=== PATIENT | male | born 1975 | race Caucasian/White ===

== ENCOUNTER 2018-09-27 14:56 | Emergency (ER) | payer SELFPAY ==
[2018-09-27] MEDS ORDERED: THIAMINE 100 MG/ML 2 ML VIAL IM STA (15:27)
[2018-09-27] MEDS ORDERED: LORazepam 2 MG/ML INJ IV PRN ×2 (15:27)
[2018-09-27 15:38] LABS: Appearance,Urine Clear (Clear); Bilirubin,Urine Negative (Negative); Blood,Urine Negative (Negative); Color,Urine Orange; Glucose,Urine (UA) 2+ (Negative); Hyaline Casts,Urine 49 /lpf (0-2); Ketones,Urine Trace (Negative); Leukocyte Esterase,Urine Negative (Negative); Mucus,Urine Few /hpf; Nitrite,Urine Negative (Negative); PH, Urine 5.5 (5.0-8.0); Protein,Urine 1+ (Negative); RBC,Urine 1 /hpf (0-5); Specific Gravity,Urine 1.028 (1.001-1.035); WBC,Urine 2 /hpf (0-5)
[2018-09-27 15:40] LABS: Amphetamine Screen,Urine Not Detected (NotDetected); Barbiturate Screen,Urine Not Detected (NotDetected); Benzodiazepines Screen,Urine Not Detected (NotDetected); Cocaine Screen,Urine Not Detected (NotDetected); Methadone Screen, Urine Not Detected (NotDetected); Opiate Screen,Urine Not Detected (NotDetected); Oxycodone Screen, Urine Not Detected (NotDetected); Phencyclidine Screen,Urine Not Detected (NotDetected); Tricyclic Antidepressant,Urine Not Detected (NotDetected); Urn Cannabinoid Scrn Detected (NotDetected)
--- NOTE | 2018-09-27 16:39 | ED ---
Psych HPI - General Source: patient, family Mode of arrival: ambulatory <Danisha Joseph - Last Filed: 09/27/18 16:35> <Singh Reyes - Last Filed: 09/28/18 12:14> - General Chief Complaint: Psychiatric Symptoms Stated Complaint: Mental Health Time Seen by Provider: 09/27/18 15:03 - History of Present Illness Initial Comments: 43yo male brought in by parents for suicidal ideations. Patient states that he has been depressed and has had occasional thoughts of suicide. He states he sent a text to his mother that was concerned for depression he would no elaborate more and she brought patient to the ER for evaluation. Patient states his dad took the gun from his house. On arrival he denies suicidal ideations currently, denies homicidal ideations. He states he does not feel he needs depression medications. States he does have outpatient counseling. Patinet states he was drinking heavily last night and has had increased drinking since divorce which increases his suicidal ideations. Remaining ROS (-) upon arrival patient appears well signs of acute distress. Blood pressure was noted to be elevated. (Danisha Joseph) - Related Data Home Medications Medication Instructions Recorded Confirmed Ascorbic Acid [Vitamin C] 500 mg PO DAILY 09/27/18 09/27/18 Allergies Allergy/AdvReac Type Severity Reaction Status Date / Time No Known Allergies Allergy Verified 09/27/18 17:39 Review of Systems ROS Other: All systems not noted in ROS Statement are negative. <Danisha Joseph - Last Filed: 09/27/18 16:35> ROS Other: All systems not noted in ROS Statement are negative. <Singh Reyes - Last Filed: 09/28/18 12:14> ROS Statement: Those systems with pertinent positive or pertinent negative responses have been documented in the HPI. Past Medical History Additional Past Medical History / Comment(s): cellulitis, gout History of Any Multi-Drug Resistant Organisms: None Reported Past Surgical History: No Surgical Hx Reported Past Psychological History: No Psychological Hx Reported Smoking Status: Light tobacco smoker Past Alcohol Use History: Daily Past Drug Use History: None Reported <Danisha Joseph - Last Filed: 09/27/18 16:35> General Exam Limitations: no limitations <Danisha Joseph - Last Filed: 09/27/18 16:35> - General Exam Comments Initial Comments: General: The patient is awake and alert, in no distress,smells of alcohol Eye: Pupils are equal, round and reactive to light, extra-ocular movements are intact. No nystagmus. There is normal conjunctiva bilaterally. No signs of icterus. Ears, nose, mouth and throat: There are moist mucous membranes and no oral lesions. Neck: The neck is supple, there is no tenderness or JVD. Cardiovascular: There is a regular rate and rhythm. No murmur, rub or gallop is appreciated. Respiratory: Lungs are clear to auscultation, respirations are non-labored, breath sounds are equal. No wheezes, stridor, rales, or rhonchi. Gastrointestinal: Soft, non-distended, non-tender abdomen without masses or organomegaly noted. There is no rebound or guarding present. Musculoskeletal: Normal ROM, no tenderness. Strength 5/5. Sensation intact. Pulses equal bilaterally 2+. Neurological: A&O x 3. CN II-XII intact, There are no obvious motor or sensory deficits. Coordination appears grossly intact. Speech is normal. Skin: Skin is warm and dry and no rashes or lesions are noted. Psychiatric: Cooperative, appropriate mood & affect, normal judgment. (Danisha Joseph) Course Vital Signs 09/27/18 09/27/18 09/28/18 14:58 20:30 00:28 Temperature 98.3 F 98.2 F Pulse Rate 101 H 96 94 Respiratory 18 20 18 Rate Blood Pressure 147/100 132/95 138/93 O2 Sat by Pulse 98 93 L 99 Oximetry 09/28/18 05:29 Temperature 98.0 F Pulse Rate 85 Respiratory 18 Rate Blood Pressure 129/103 O2 Sat by Pulse 95 Oximetry Medical Decision Making - Lab Data Result diagrams: 09/27/18 19:45 09/27/18 19:45 <Singh Reyes - Last Filed: 09/28/18 12:14> - Medical Decision Making Patient was evaluated by EPS and patient was petitioned by family for psychiat saroj treatment. Patient accepted that [facility] (Singh Reyes) - Lab Data Lab Results 09/27/18 09/27/18 09/27/18 Range/Units 15:09 19:45 19:45 WBC 4.7 (3.8-10.6) k/uL RBC 4.58 (4.30-5.90) m/uL Hgb 15.4 (13.0-17.5) gm/dL Hct 45.4 (39.0-53.0) % MCV 98.9 (80.0-100.0) fL MCH 33.7 (25.0-35.0) pg MCHC 34.0 (31.0-37.0) g/dL RDW 11.7 (11.5-15.5) % Plt Count 195 (150-450) k/uL Neutrophils % 69 % Lymphocytes % 19 % Monocytes % 7 % Eosinophils % 3 % Basophils % 1 % Neutrophils # 3.3 (1.3-7.7) k/uL Lymphocytes # 0.9 L (1.0-4.8) k/uL Monocytes # 0.3 (0-1.0) k/uL Eosinophils # 0.1 (0-0.7) k/uL Basophils # 0.1 (0-0.2) k/uL Sodium 140 (137-145) mmol/L Potassium 4.1 (3.5-5.1) mmol/L Chloride 100 (98-107) mmol/L Carbon Dioxide 23 (22-30) mmol/L Anion Gap 17 mmol/L BUN 6 L (9-20) mg/dL Creatinine 0.81 (0.66-1.25) mg/dL Est GFR (CKD-EPI)AfAm >90 (>60 ml/min/1.73 sqM) Est GFR (CKD-EPI)NonAf >90 (>60 ml/min/1.73 sqM) Glucose 226 H (74-99) mg/dL Calcium 9.2 (8.4-10.2) mg/dL Total Bilirubin 1.3 (0.2-1.3) mg/dL AST 380 H (17-59) U/L ALT 165 H (21-72) U/L Alkaline Phosphatase 268 H (38-126) U/L Total Protein 8.8 H (6.3-8.2) g/dL Albumin 4.8 (3.5-5.0) g/dL Urine Color [place] Urine Appearance Clear (Clear) Urine pH 5.5 (5.0-8.0) Ur Specific [place] 1.028 (1.001-1.035) Urine Protein 1+ H (Negative) Urine Glucose (UA) 2+ H (Negative) Urine Ketones Trace H (Negative) Urine Blood Negative (Negative) Urine Nitrite Negative (Negative) Urine Bilirubin Negative (Negative) Urine Urobilinogen 6.0 (<2.0) mg/dL Ur Leukocyte Esterase Negative (Negative) Urine RBC 1 (0-5) /hpf Urine WBC 2 (0-5) /hpf Hyaline Casts 49 H (0-2) /lpf Urine Mucus Few H (None) /hpf Urine Opiates Screen Not Detected (NotDetected) Ur Oxycodone Screen Not Detected (NotDetected) Urine Methadone Screen Not Detected (NotDetected) Ur Propoxyphene Screen Not Detected (NotDetected) Ur Barbiturates Screen Not Detected (NotDetected) U Tricyclic Antidepress Not Detected (NotDetected) Ur Phencyclidine Scrn Not Detected (NotDetected) Ur Amphetamines Screen Not Detected (NotDetected) U Methamphetamines Scrn Not Detected (NotDetected) U Benzodiazepines Scrn Not Detected (NotDetected) Urine Cocaine Screen Not Detected (NotDetected) U Marijuana (THC) Screen Detected H (NotDetected) Disposition <Danisha Joseph L - Last Filed: 09/27/18 16:35> <Singh Reyes - Last Filed: 09/28/18 12:14> Clinical Impression: Depression, Suicidal ideation Disposition: TRANSFER TO PSYCH HOSP/UNIT Condition: Stable Referrals: Augusto Jaffe MD [Primary Care Provider] - 1-2 days
[2018-09-27] MEDS: LORazepam 2 MG/ML INJ IV PRN (19:49)
[2018-09-27] MEDS: THIAMINE 100 MG TAB PO SCH (19:50)
[2018-09-27 19:51] LABS: Basophils # (A) 0.1 k/uL (0-0.2); Basophils % (A) 1 %; Eosinophils # (A) 0.1 k/uL (0-0.7); Eosinophils % (A) 3 %; HCT 45.4 % (39.0-53.0); HGB 15.4 gm/dL (13.0-17.5); Lymphocytes # (A) 0.9 k/uL (1.0-4.8); Lymphocytes % (A) 19 %; MCH 33.7 pg (25.0-35.0); MCV 98.9 fL (80.0-100.0); Mean Platelet Volume 8.1; Monocytes # (A) 0.3 k/uL (0-1.0); Monocytes % (A) 7 %; Neutrophils # (A) 3.3 k/uL (1.3-7.7); Neutrophils % (A) 69 %; Platelet Count 195 k/uL (150-450); RBC 4.58 m/uL (4.30-5.90); RDW 11.7 % (11.5-15.5); WBC 4.7 k/uL (3.8-10.6)
[2018-09-27 20:07] LABS: ALT 165 U/L (21-72); AST 380 U/L (17-59); African American GFR (CKD) >90 (>60 ml/min/1.73 sqM); Albumin 4.8 g/dL (3.5-5.0); Alkaline Phosphatase 268 U/L (38-126); Anion Gap 17 mmol/L; Blood Urea Nitrogen 6 mg/dL (9-20); Calcium 9.2 mg/dL (8.4-10.2); Carbon Dioxide 23 mmol/L (22-30); Chloride 100 mmol/L (98-107); Glucose 226 mg/dL (74-99); Non-African American GFR(CKD) >90 (>60 ml/min/1.73 sqM); Potassium 4.1 mmol/L (3.5-5.1); Sodium 140 mmol/L (137-145); Total Bilirubin 1.3 mg/dL (0.2-1.3); Total Protein 8.8 g/dL (6.3-8.2)
[2018-09-28 00:30] VITALS: RESP 18
[2018-09-28] MEDS: LORazepam 2 MG/ML INJ IV PRN ×2 (00:33→12:33)
[2018-09-28 05:30] VITALS: TEMP 98
[2018-09-28 15:07] VITALS: BP 130/90; PULSE 85
[2018-09-28] MEDS: THIAMINE 100 MG TAB PO SCH (15:39)
[2018-09-28] MEDS ORDERED: LORazepam 1 MG TAB PO STA (15:48)
== END 2018-09-28 16:00 ==
LOC: EC 14:56
DX: R45.851 Suicidal ideations (principal); F32.9 Major depressive disorder, single episode, unspecified; F17.210 Nicotine dependence, cigarettes, uncomplicated
CPT/HCPCS: 82075; 36415; 80053; 85025; 81001; 80306; 99285; 96374; 96376; 96372; J2060 ×2; J3411